=== PATIENT | female | born 1930 | race American Indian/Alaskan Native ===

== ENCOUNTER 2019-12-16 19:48 | Emergency (ER) | payer MEDICARE, OTHER ==
[2019-12-16 19:55] VITALS: BP 160/90
--- NOTE | 2019-12-16 20:22 | Event Note ---
Date: 12/16/19 89-year-old female status post reported mechanical fall, with left-sided forehead laceration. Check CT head and C-spine, screening laboratory studies, urinalysis, reassess. Vital Signs 12/16/19 19:53 Temperature 98.7 F Pulse Rate 91 H Respiratory 16 Rate Blood Pressure 160/90 O2 Sat by Pulse 97 Oximetry
[2019-12-16 20:58] LABS: Hematocrit 34.9 % (30.3-42.9); Hemoglobin 11.6 gm/dl (10.1-14.3); Mean Corpuscular HGB Conc 33 % (30-34); Mean Corpuscular Volume 90 fl (79-97); Platelet Count 198 K/mm3 (140-440); Red Blood Count 3.89 M/mm3 (3.65-5.03); Red Cell Distribution Width 13.7 % (13.2-15.2)
--- NOTE | 2019-12-16 20:58 | Cat Scan Report ---
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 TECHNIQUE: Axial CT images were obtained through the cervical spine. Sagittal and coronal reformatted images wer e produced. All CT scans at this location are performed using CT dose reduction for ALARA by means of automated exposure control. COMPARISON: None available. FINDINGS: VERTEBRAE: No significant abnormality. ALIGNMENT: No significant abnormality. DISC SPACES: Mild multilevel discogenic spondylosis. FACET JOINTS: Mild multilevel facet arthrosis. CRANIOCERVICAL JUNCTION:No significant abnormality. SPINAL CANAL: No significant abnormality. PARASPINAL SOFT TISSUES: No significant abnormality. ADDITIONAL FINDINGS: None. LUNG APICES: No significant abnormality of visualized lungs. IMPRESSION: 1. No acute fracture or subluxation. Signer Name: Laron Adams MD Signed: 12/16/2019 8:53 PM Workstation Name: [id number]
--- NOTE | 2019-12-16 21:00 | Cat Scan Report ---
CT HEAD WITHOUT CONTRAST INDICATION / CLINICAL INFORMATION: closed head injury. TECHNIQUE: All CT scans at this location are performed using CT dose reduction for ALARA by means of automated e xposure control. COMPARISON: CT dated 09/07/18 FINDINGS: HEMORRHAGE: None. EXTRA-AXIAL SPACES: Mildly prominent likely related to cortical atrophy. VENTRICULAR SYSTEM: Moderately enlarged likely related to central atrophy. No change. 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 No acute territorial infarct. MIDLINE SHIFT OR HERNIATION: None. CEREBELLUM / BRAINSTEM: No significant abnormality. ORBITS: Normal as visualized. SOFT TISSUES of HEAD: Gas in the left periorbital soft tissues possibly due to laceration. CALVARIUM: No significant abnormality. PARANASAL SINUSES / MASTOID AIR CELLS: Normal as visualized. ADDITIONAL FINDINGS: None. IMPRESSION: 1. No acute intracranial abnormality. 2. Possible left periorbital soft tissue injury. Signer Name: Laron Adams MD Signed: 12/16/2019 8:55 PM Workstation Name: [id number]
[2019-12-16 21:11] LABS: Calcium 9.3 mg/dL (8.4-10.2)
[2019-12-16] MEDS ORDERED: TETANUS,DIPH,PERTUSS(ACELL) VACCINE 0.5 ML SYRINGE IM ONE (21:29)
[2019-12-16] MEDS ORDERED: MAGNESIUM OXIDE 400 MG TAB PO STA (21:29)
[2019-12-16] MEDS ORDERED: ACETAMINOPHEN 325 MG TAB PO ONE (21:29)
[2019-12-16] MEDS ORDERED: SODIUM CHLORIDE 0.9% IRR 500 ML BOTTLE IR ONE (21:30)
[2019-12-16] MEDS ORDERED: LIDOCAINE 2%/EPINEPHRINE 1:200,000 VIAL (20 ML) INFILTRATI ONE (21:30)
--- NOTE | 2019-12-16 21:37 | Emergency Department Report ---
ED General Adult HPI - General Chief complaint: Fall Stated complaint: LACERATION TO HEAD Time Seen by Provider: 12/16/19 21:20 Source: patient, EMS ( EMS documentation not available at time of chart dictation ), RN notes reviewed Mode of arrival: Stretcher Limitations: Physical Limitation, Other (Patient is demented and a poor historian) - History of Present Illness Initial comments: The patient is an 89-year-old female. The patient is not known to myself previously. She is brought to the hospital by emergency medical services. Apparently, the patient had a mechanical fall. Her primary care doctor is Dr. Sparks. She comes from [facility] [[email or web address] She is found to have a left-sided scalp laceration. The patient does not endorse any complaints, except she grumbles when she is examined. She is not able to describe the circumstances surrounding her fall. EMS verbally reported that it was a mechanical fall. Patient not able to describe exacerbating or relieving factors, qualitative nature of her symptoms. -: This evening Location: head Radiation: other Quality: other Consistency: other Improves with: other Worsens with: other Associated Symptoms: other - Related Data Allergies Allergy/AdvReac Type Severity Reaction Status Date / Time No Known Allergies Allergy Verified 12/16/19 21:32 ED Review of Systems ROS: Stated complaint: LACERATION TO HEAD Other details as noted in HPI Comment: Unobtainable due to pts medical conditions ED Past Medical Hx - Past Medical History Previous Medical History?: Yes Hx Hypertension: Yes Hx Dementia: Yes - Social History Smoking Status: Unknown if ever smoked ED Physical Exam - General Limitations: Other (Patient is demented and a poor historian) General appearance: in no apparent distress, anxious, other (Patient somewhat agitated) - Head Head exam: Present: normocephalic, other (There is a left-sided lateral forehead supraorbital laceration, 3 cm, through skin, connective tissue, muscle, with no obvious foreign body) - Eye Eye exam: Present: normal appearance, EOMI - ENT ENT exam: Present: normal exam, normal orophraynx, mucous membranes moist, normal external ear exam - Neck Neck exam: Present: normal inspection, full ROM. Absent: tenderness, meningismus - Respiratory Respiratory exam: Present: normal lung sounds bilaterally. Absent: respiratory distress, wheezes, rales, rhonchi, stridor, chest wall tenderness - Cardiovascular Cardiovascular Exam: Present: regular rate, normal rhythm, normal heart sounds. Absent: bradycardia, tachycardia, irregular rhythm, systolic murmur, diastolic murmur, rubs, gallop - GI/Abdominal GI/Abdominal exam: Present: soft. Absent: distended, tenderness, guarding, rebound, rigid, pulsatile mass - Extremities Exam Extremities exam: Present: normal inspection, full ROM, other (2+ pulses noted in the bilateral upper and lower extremities. There is no palpable cord. negative Homans sign. Muscular compartments are soft. The pelvis is stable.). Absent: calf tenderness - Back Exam Back exam: Present: normal inspection, full ROM. Absent: tenderness, CVA tenderness (R), CVA tenderness (L), paraspinal tenderness, vertebral tenderness - Neurological Exam Neurological exam: Present: other (The patient is awake. The patient speaks in complete sentences, although thought process is somewhat illogical. She is moving 4 extremities spontaneously. Detailed neurologic examination not possible secondary to underlying dementia) - Psychiatric Psychiatric exam: Present: normal affect, normal mood, agitated, anxious - Skin Skin exam: Present: warm ED Course Vital Signs 12/16/19 12/16/19 19:53 22:15 Temperature 98.7 F Pulse Rate 91 H Respiratory 16 18 Rate Blood Pressure 160/90 O2 Sat by Pulse 97 Oximetry - Laceration /Wound Repair Left Upper Lateral Temporal Wound Location: head Wound Length (cm): 3 Wound's Depth, Shape: into muscle, irregular, contused tissue Wound Explored: no foreign body removed Irrigated w/ Saline (ccs): 500 Betadine Prep?: Yes Anesthesia: Lidocaine w/ Epi Volume Anesthetic (ccs): 10 Wound Debrided: minimal Wound Repaired With: sutures Suture Size/Type: 3:0 (Interrupted, monofilament) Number of Sutures: 6 Layer Closure?: Yes Deep Layer Suture Size/Type: 3:0 (Interrupted, monofilament) Number Deep Layer Sutures: 3 Sterile Dressing Applied?: Yes (Steri-Strips applied) ED Medical Decision Making - Lab Data Result diagrams: 12/16/19 20:34 12/16/19 20:34 Vital Signs 12/16/19 19:53 Temperature 98.7 F Pulse Rate 91 H Respiratory 16 Rate Blood Pressure 160/90 O2 Sat by Pulse 97 Oximetry Lab Results 12/16/19 12/16/19 Range/Units 20:34 20:34 WBC 9.1 (4.5-11.0) K/mm3 RBC 3.89 (3.65-5.03) M/mm3 Hgb 11.6 (10.1-14.3) gm/dl Hct 34.9 (30.3-42.9) % MCV 90 (79-97) fl MCH 30 (28-32) pg MCHC 33 (30-34) % RDW 13.7 (13.2-15.2) % Plt Count 198 (140-440) K/mm3 Sodium 140 (137-145) mmol/L Potassium 4.2 (3.6-5.0) mmol/L Chloride 100.9 (98-107) mmol/L Carbon Dioxide 25 (22-30) mmol/L Anion Gap 18 mmol/L BUN 21 H (7-17) mg/dL Creatinine 1.2 (0.7-1.2) mg/dL Estimated GFR 42 ml/min BUN/Creatinine Ratio 18 % Glucose 163 H (65-100) mg/dL Calcium 9.3 (8.4-10.2) mg/dL Magnesium 1.60 L (1.7-2.3) mg/dL Total Creatine Kinase 164 H (30-135) units/L - Radiology Data Radiology results: report reviewed, image reviewed Noncontrast CT scan of the brain and cervical spine negative for significant disease. Left-sided laceration noted, consistent with physical exam. - Medical Decision Making Differential diagnosis, including but not limited to: Forehead laceration, intracranial injury, cervical spine injury, myositis, electrolyte derangement, bacteriuria, urinary tract infection Assessment and plan: 89-year-old female status post reported mechanical fall, with left-sided forehead laceration. Laceration is repaired with layered closure. Please note that patient had macerated superficial skin edges, and required application of sutures with greater tensile strength, therefore, laceration was repaired loosely, with the best approximation possible, with 3-0 monofilament sutures. Steri-Strips were then applied. Screening laboratory studies unremarkable, CT scan of the brain and cervical spine reviewed, urinalysis is pending at this time. Critical care attestation.: If time is entered above; I have spent that time in minutes in the direct care of this critically ill patient, excluding procedure time. ED Disposition Clinical Impression: Forehead laceration Qualifiers: Encounter type: initial encounter Qualified Code(s): S01.81XA - Laceration without foreign body of other part of head, initial encounter Disposition: DC/TX-70 ANOTHER TYPE HLTHCARE Is pt being admited?: No Does the pt Need Aspirin: No Condition: Stable Additional Instructions: avoid use of Motrin, ibuprofen, Naprosyn, Aleve. Patient may take [id number] Tylenol as needed for pain, and alternate ice packs and heat packs as needed for pain. Patient should wash the forehead laceration with gentle soap and water once every 12-24 hours. The patient may apply over-the-c ounter bacitracin as needed to left forehead laceration. Recommend stitches to be taken out in the next 5 to 7 days. Continue current outpatient medications otherwise. Return to the emergency room right away with new, worsened or different symptoms, or symptoms not present on the initial emergency room evaluation. Referrals: RENA ROJAS MD [Referring] - 3-5 Days
[2019-12-16] MEDS ORDERED: POVIDONE-IODINE OINTMENT 28.35 GM TP SCH (21:45)
[2019-12-16 22:15] LABS: Bilirubin,Urine NEG (Negative); Blood,Urine NEG (Negative); Color,Urine Yellow (Yellow); Mucus,Urine FEW /HPF; Protein,Urine <15 mg/dL mg/dL (Negative); Urobilinogen,Urine < 2.0 mg/dL (<2.0)
== END 2019-12-16 23:46 | disposition other institution (70) ==
LOC: ED 19:48
DX: S01.81XA Laceration without foreign body of other part of head, initial encounter (principal); I10 Essential (primary) hypertension; F03.90 Unspecified dementia, unspecified severity, without behavioral disturbance, psychotic disturbance, mood disturbance, and anxiety; W18.39XA Other fall on same level, initial encounter; Y93.89 Activity, other specified; Y92.89 Other specified places as the place of occurrence of the external cause; Y99.8 Other external cause status
CPT/HCPCS: 36415; 70450; 72125; 80048; 81001; 82550; 83735; 85027; 90471; 90715